=== PATIENT | female | born 2000 | race Two or more races ===

== ENCOUNTER 2019-08-09 03:07 | Emergency (ER) | payer MEDICAID, OTHER ==
[~2019-08-09] VITALS: Ht 154.9 cm; Wt 57.6 kg
[~2019-08-09 03:07] MED LIST: MACROBID100 MG ORAL; ZOFRAN ODT4 MG ORAL
[2019-08-09] MEDS ORDERED: NKM (03:13)
[2019-08-09 03:24] VITALS: BP 108/69
--- NOTE | 2019-08-09 03:27 | NUR ---
ER Nurse Note: Pt walked in c/o lower abd pain from LT to RT adb since the last 3 months. Pain is 5/10 in abd, described as dull pain. Denies n/v/d, denies fever, denies trauma. Pt states she is sexually active, last period is 06/25/2019. Will continue to [facility].
--- NOTE | 2019-08-09 03:36 | Emergency Room Report ---
History of Present Illness General Chief Complaint: Abdominal Pain Source: Patient Present Illness HPI Disclaimer: Please note that this report is being documented using Dragon PortsON technology. This can lead to erroneous entry secondary to incorrect interpretation by the dictating instrument. HPI: 18-year-old female with no reported medical history presents for evaluation of abdominal pain. States she has had lower abdominal cramping in the suprapubic and bilateral lower quadrants for approximately 3 months intermittently. Today she came because she had a "uncomfortableness" in the left upper quadrant that she does not describe as pain but rather just a discomfort. She states the lower pelvic pain is exacerbated by wearing tight clothing. She denies any fevers, chills, chest pain, shortness of breath, vomiting, nausea, diarrhea, dysuria, hematuria, hematochezia or melena. Denies vaginal bleeding or vaginal discharge. LMP was probably 1 month ago. She has an IUD for the past 5 years. Does not follow regularly with [employer] or PMD. She has been smoking marijuana to control the pain. Has not taken any medication prior to arrival. Eating and drinking without difficulty. PMH: Denies PSH: Denies Allergies: Social Hx: Regular THC use Allergies: Coded Allergies: No Known Allergies (Unverified , 01/13/16) Patient History Last Menstrual Period: 07/05/19 Now: No Nursing Documentation-PMH Past Medical History: No Stated History Review of Systems All Other Systems: negative except mentioned in HPI Physical Exam Vital Signs Date Time Temp Pulse Resp B/P (MAP) Pulse Ox O2 Delivery O2 Flow Rate FiO2 08/09/19 03:09 98.4 72 14 108/69 (82) 100 Room Air General: Awake and alert, no acute distress HEENT: NC/AT. EOMI. Cardiovascular: RRR. S1 and S2 normal. No murmur appreciated Resp: Normal work of breathing. No cough, wheezing or crackles appreciated Abdomen: Abdomen is soft, nondistended. Nontender, no masses, no rebound, negative Calabrese sign. There is no CVA tenderness. Skin: Intact. No abrasions, laceration or rash over the exposed skin MSK: Normal tone and bulk. Moving all extremities. No obvious deformity. Neuro: Awake and alert. Mentating appropriately. Back/Spine: No CVA tenderness Medical Decision Making Diagnostic Impression: Primary Impression: UTI (urinary tract infection) ER Course 18-year-old female presents for evaluation of 3 months lower pelvic pain and new onset left upper quadrant discomfort. Differential includes was not limited to gastritis, GERD, pancreatitis, bowel obstruction, constipation, ovarian cyst, nephrolithiasis, urinary tract infection, ectopic . Will obtain labs including hCG, urinalysis and blood work with lipase. Will give Toradol for pain. She is otherwise very well-appearing, benign abdomen. Do not believe she requires emergent imaging at this time. If abdominal pain persists she may require outpatient ultrasound to evaluate for ovarian cyst however at this time she has no indications for emergent imaging. Laboratory Tests Test 08/09/19 03:17 White Blood Count 10.5 K/UL (4.8-10.8) Red Blood Count 5.16 M/UL (4.20-5.40) Hemoglobin 15.0 G/DL (12.0-16.0) Hematocrit 44.8 % (37.0-47.0) Mean Corpuscular Volume 87 FL (80-99) Mean Corpuscular Hemoglobin 29.0 PG (27.0-31.0) Mean Corpuscular Hemoglobin Concent 33.4 G/DL (32.0-36.0) Red Cell Distribution Width 10.8 % (11.6-14.8) L Platelet Count 304 K/UL (150-450) Mean Platelet Volume 7.9 FL (6.5-10.1) Neutrophils (%) (Auto) 50.8 % (45.0-75.0) Lymphocytes (%) (Auto) 40.6 % (20.0-45.0) Monocytes (%) (Auto) 6.1 % (1.0-10.0) Eosinophils (%) (Auto) 1.0 % (0.0-3.0) Basophils (%) (Auto) 1.4 % (0.0-2.0) Urine Color Pale yellow Urine Appearance Slightly cloudy Urine pH 6 (4.5-8.0) Urine Specific [place] 1.010 (1.005-1.035) Urine Protein Negative (NEGATIVE) Urine Glucose (UA) Negative (NEGATIVE) Urine Ketones 2+ (NEGATIVE) H Urine Blood Negative (NEGATIVE) Urine Nitrite Negative (NEGATIVE) Urine Bilirubin Negative (NEGATIVE) Urine Urobilinogen Normal MG/DL (0.0-1.0) Urine Leukocyte Esterase 2+ (NEGATIVE) H Urine RBC 0-2 /HPF (0 - 2) Urine WBC 10-15 /HPF (0 - 2) H Urine Squamous Epithelial Cells Many /LPF (NONE/OCC) H Urine Bacteria Many /HPF (NONE) H Urine HCG, Qualitative Negative (NEGATIVE) Sodium Level 139 MMOL/L (136-145) Potassium Level 3.7 MMOL/L (3.5-5.1) Chloride Level 103 MMOL/L (98-107) Carbon Dioxide Level 28 MMOL/L (21-32) Anion Gap 8 mmol/L (5-15) Blood Urea Nitrogen 12 mg/dL (7-18) Creatinine 0.7 MG/DL (0.55-1.30) Estimate Glomerular Filtration Rate > 60 mL/min (>60) Glucose Level 97 MG/DL (74-106) Calcium Level 9.7 MG/DL (8.5-10.1) Total Bilirubin 0.6 MG/DL (0.2-1.0) Aspartate Amino Transferase (AST) 14 U/L (15-37) L Alanine Aminotransferase (ALT) 17 U/L (12-78) Alkaline Phosphatase 47 U/L (46-116) Total Protein 8.3 G/DL (6.4-8.2) H Albumin 4.8 G/DL (3.4-5.0) Globulin 3.5 g/dL Albumin/Globulin Ratio 1.4 (1.0-2.7) Lipase 123 U/L (73-393) Reevaluation Time: 04:11 Last Vital Signs Date Time Temp Pulse Resp B/P (MAP) Pulse Ox O2 Delivery O2 Flow Rate FiO2 08/09/19 03:24 98.4 78 14 108/69 100 Room Air Reevaluation Impression Urinalysis concerning for acute urinary tract infection and the patient will be treated with Macrobid. CBC and CMP are largely within normal limits. The patient will be discharged to follow-up with PMD as an outpatient. We discussed reasons to return to the emergency department. She understands and agrees with this treatment plan. Disposition: HOME, SELF-CARE Condition: Stable Scripts Nitrofurantoin Monohyd/M-Cryst* (MACROBID 100 MG*) 100 Mg Capsule 100 MG ORAL EVERY 12 HOURS for 7 Days, #14 CAP Prov: Lonny Worrell MD 08/09/19 Lonny Worrell MD Aug 09, 2019 03:36
[2019-08-09 03:41] LABS: BASOPHILS % (AUTO) 1.4 % (0.0-2.0); HEMATOCRIT 44.8 % (37.0-47.0); LYMPHOCYTES % (AUTO) 40.6 % (20.0-45.0); MEAN CORPUSCULAR VOLUME 87 FL (80-99); MONOCYTES % (AUTO) 6.1 % (1.0-10.0); NEUTROPHILS % (AUTO) 50.8 % (45.0-75.0); PLATELET COUNT 304 K/UL (150-450); RED BLOOD COUNT 5.16 M/UL (4.20-5.40); RED CELL DISTRIBUTION WIDTH 10.8 % (11.6-14.8); WHITE BLOOD COUNT 10.5 K/UL (4.8-10.8)
[2019-08-09 03:42] LABS: BILIRUBIN, URINE NEGATIVE (NEGATIVE); COLOR,URINE PALE YELLOW; GLUCOSE, URINE (UA) NEGATIVE (NEGATIVE); KETONES,URINE 2+ (NEGATIVE); NITRITE,URINE NEGATIVE (NEGATIVE); PH,URINE 6 (4.5-8.0); PROTEIN,URINE NEGATIVE (NEGATIVE); UROBILINOGEN,URINE NORMAL MG/DL (0.0-1.0)
[2019-08-09] MEDS ORDERED: Ketorolac 30mg Inj IV ONE (03:45)
[2019-08-09 03:47] LABS: ANION GAP 8 mmol/L (5-15); BLOOD UREA NITROGEN 12 mg/dL (7-18); CALCIUM 9.7 MG/DL (8.5-10.1); CARBON DIOXIDE 28 MMOL/L (21-32); CHLORIDE 103 MMOL/L (98-107); CREATININE 0.7 MG/DL (0.55-1.30); POTASSIUM 3.7 MMOL/L (3.5-5.1); SODIUM 139 MMOL/L (136-145)
[2019-08-09 03:51] LABS: APPEARANCE,URINE SLIGHTLY CLOUDY; LEUKOCYTE ESTERASE ,URINE 2+ (NEGATIVE)
[2019-08-09 03:52] LABS: ALANINE AMINOTRANSFERASE 17 U/L (12-78); ALBUMIN 4.8 G/DL (3.4-5.0); ALBUMIN/GLOBULIN RATIO 1.4 (1.0-2.7); ALKALINE PHOSPHATASE 47 U/L (46-116); ASPARTATE AMINO TRANSFERASE 14 U/L (15-37); BILIRUBIN,TOTAL 0.6 MG/DL (0.2-1.0)
[2019-08-09] MEDS ORDERED: NITROFURANTOIN100 M2 ORAL (04:10)
[2019-08-09 04:16] VITALS: BP 108/69
--- NOTE | 2019-08-09 04:16 | NUR ---
ER Nurse Note: Pt seen, treated, medically cleared for discharge by ER MD. Discharge instuctions and prescriptions given with repeat verbalization by pt. Emphasized to follow up with primay care provider. All orders completed per ERMD orders. Pt a&ox4, VSS, no signs of distress. ID band removed. IV removed; site clean and bandaged. All questions answered per pt's questions. Pt left with all belongings, left with own transportation.
== END 2019-08-09 04:16 | disposition home or self-care (01) ==
LOC: EMR 03:30
DX: N39.0 Urinary tract infection, site not specified (principal)
CPT/HCPCS: 36415; 80053; 81003; 81025; 83690; 85025; 87086; 87181; 96374; J1885; Z7502; 99284